=== PATIENT | male | born 1975 | race Caucasian/White ===

== ENCOUNTER 2024-04-27 09:38 | Observation (INO) | payer MEDICARE, OTHER ==
[~2024-04-27] VITALS: Ht 165.1 cm; Wt 64.9 kg
[2024-04-27 09:41] VITALS: BP 198/82; PULSE 54; RESP 18; TEMP 98.2; O2SAT 97
[2024-04-27 09:43] VITALS: BP 184/65; PULSE 52; RESP 18; TEMP 97.9; O2SAT 97
[2024-04-27 10:24] LABS: BASOPHILS % (AUTO) 0.9 % (0.0-2.0); EOSINOPHILS # (AUTO) 0.3 K/uL (0-0.4); EOSINOPHILS % (AUTO) 7.3 % (0.0-4.0); HEMATOCRIT 25.2 % (36-52); HEMOGLOBIN 8.7 g/dL (12.0-18.0); LYMPHOCYTES # (AUTO) 0.4 K/uL (2.0-11.5); MEAN CORPUSCULAR HEMOGLOBIN 32 pg (27-31); MEAN CORPUSCULAR HGB CONC 35 g/dL (33-37); MEAN CORPUSCULAR VOLUME 93.5 fL (80-94); MONOCYTES # (AUTO) 0.3 K/uL (0.8-1.0); NEUTROPHILS # (AUTO) 2.6 K/uL (1.8-7.7); NEUTROPHILS % (AUTO) 72.8 % (42.2-75.2); PLATELET COUNT (AUTO) 105 K/uL (140-450); RED CELL DISTRIBUTION WIDTH 16.8 % (11.6-13.7); WHITE BLOOD COUNT (AUTO) 3.6 K/uL (4.8-10.8)
[2024-04-27] MEDS ORDERED: AMLO10TA88 PO (10:36)
[2024-04-27] MEDS ORDERED: LISI40TA8 PO (10:36)
[2024-04-27] MEDS ORDERED: HYDR-3004 PO (10:36)
[2024-04-27] MEDS ORDERED: SEVE800T6 PO (10:36)
[2024-04-27] MEDS ORDERED: LABE100T11 PO (10:36)
[2024-04-27 10:52] LABS: ALANINE AMINOTRANSFERASE 19 U/L (12-78); ALKALINE PHOSPHATASE 84 U/L (50-136); ANION GAP 15.1 (8-16); ASPARTATE AMINOTRANSFERASE 14 U/L (15-37); CARBON DIOXIDE 28.2 mmol/L (21-32); CHLORIDE 94 mmol/L (98-107); GFR ARICAN-AMERICAN 11 mL/min (>90); GFR NON ARICAN-AMERICAN 9 mL/min (>90); GLUCOSE 88 mg/dL (74-106); POTASSIUM 4.3 mmol/L (3.5-5.1); SODIUM SERUM 133 mmol/L (136-145); TOTAL BILIRUBIN 1.1 mg/dL (0.0-1.0); TOTAL PROTEIN, SERUM 7.9 g/dL (6.4-8.2); UREA NITROGEN, BLOOD 39 mg/dL (7-18)
[2024-04-27 10:54] LABS: CREATININE 6.7 mg/dL (0.6-1.3)
[2024-04-27] MEDS ORDERED: MORPHINE SULFATE 2 MG/ML SYR IVP PRN (11:50)
[2024-04-27] MEDS ORDERED: ONDANSETRON 4 MG/2 ML VIAL IVP PRN (11:50)
[2024-04-27 15:00] VITALS: RESP 19; O2SAT 95
[2024-04-27 16:00] VITALS: BP 177/72; PULSE 59; PULSE 69; RESP 17; TEMP 97.7; O2SAT 95
[2024-04-27] MEDS: hydrALAZINE 20 MG/ML VIAL IVP PRN (17:24)
[2024-04-27 20:00] VITALS: BP 130/52; PULSE 80; RESP 19; TEMP 97.6; O2SAT 95
[2024-04-28] VITALS (9 sets, daily range): BP systolic 159–183; BP diastolic 64–89; PULSE 61–80; RESP 14–19; TEMP 97.1–98.3; O2SAT 92–99
[2024-04-28] MEDS: ACETAMINOPHEN 325 MG TAB PO PRN (04:10)
[2024-04-28 06:09] LABS: ANION GAP 14.9 (8-16); BASOPHILS % (AUTO) 0.7 % (0.0-2.0); CALCIUM 7.4 mg/dL (8.5-10.1); CARBON DIOXIDE 27.6 mmol/L (21-32); EOSINOPHILS # (AUTO) 0.2 K/uL (0-0.4); HEMATOCRIT 24.5 % (36-52); HEMOGLOBIN 8.4 g/dL (12.0-18.0); LYMPHOCYTES # (AUTO) 0.5 K/uL (2.0-11.5); LYMPHOCYTES % (AUTO) 13.5 % (20.5-51.1); MEAN CORPUSCULAR HEMOGLOBIN 32 pg (27-31); MEAN CORPUSCULAR HGB CONC 34 g/dL (33-37); MEAN CORPUSCULAR VOLUME 94.4 fL (80-94); MONOCYTES # (AUTO) 0.4 K/uL (0.8-1.0); MONOCYTES % (AUTO) 9.8 % (1.7-9.3); NEUTROPHILS # (AUTO) 2.8 K/uL (1.8-7.7); PLATELET COUNT (AUTO) 102 K/uL (140-450); POTASSIUM 5.5 mmol/L (3.5-5.1); RED CELL DISTRIBUTION WIDTH 16.5 % (11.6-13.7)
[2024-04-28 06:49] LABS: CREATININE 9.4 mg/dL (0.6-1.3)
[2024-04-28] MEDS ORDERED: NON-FORMULARY ITEM (Lisinopril 1 TAB) PO SCH (09:00)
[2024-04-28] MEDS ORDERED: NON-FORMULARY ITEM (Amlodipine Besylate 10 MG) PO SCH (09:00)
[2024-04-28] MEDS: LABETALOL 100 MG TAB PO SCH (10:48)
[2024-04-28] MEDS: hydrALAZINE 25 MG TAB PO SCH ×2 (10:48→13:00)
[2024-04-28] MEDS: SEVELAMER CARBONATE 800 MG TAB PO SCH (10:49)
[2024-04-28] MEDS: lisinopriL 20 MG TAB PO SCH (10:49)
[2024-04-28] MEDS: amLODIPine 5 MG TAB PO SCH (10:50)
[2024-04-28] MEDS: CLONIDINE HYDROCHLORIDE 0.1 MG TAB PO SCH (13:10)
[2024-04-28] MEDS ORDERED: MEDS-TO-BEDS MC SCH (21:00)
[2024-04-29] MEDS ORDERED: hydrALAZINE 25 MG TAB PO SCH (09:00)
[2024-04-29] MEDS ORDERED: NIFEdipine 90 MG TABER PO SCH (09:00)
== END 2024-04-29 10:37 | disposition home or self-care (01) ==
LOC: MED 09:38 → MTU 11:49
PROVIDERS: ADMIT Hospitalist; ATTEND Hospitalist
DX: I12.0 Hypertensive chronic kidney disease with stage 5 chronic kidney disease or end stage renal disease (principal); N18.6 End stage renal disease; T82.838A Hemorrhage due to vascular prosthetic devices, implants and grafts, initial encounter; D63.1 Anemia in chronic kidney disease; R94.31 Abnormal electrocardiogram [ECG] [EKG]; D61.818 Other pancytopenia; R53.1 Weakness; Z79.899 Other long term (current) drug therapy; Z99.2 Dependence on renal dialysis; Y92.89 Other specified places as the place of occurrence of the external cause
CPT/HCPCS: 36415; 80048; 80053; 82948; 83735; 84484; 85025; 87081; 93005; 94760; 96374; 96376; 99291; G0378; J0360; 90935; G0257